=== PATIENT | female | born 2000 | race Caucasian/White ===

== ENCOUNTER 2022-07-27 21:12 | Emergency (ER) | payer OTHER ==
[2022-07-27 21:16] VITALS: BP 121/78; PULSE 77; RESP 16; TEMP 98.2; BMI 32.9
== END 2022-07-27 21:30 | disposition left against medical advice (07) ==
LOC: JERFT 21:12 → JER 21:12
DX: R51.9 Headache, unspecified (principal)
CPT/HCPCS: 99281-25

== ENCOUNTER 2022-08-02 10:00 | Inpatient (IN) | payer OTHER ==
[2022-08-02] MEDS: ELECTROLYTE-148 SOLN 1,000 ML IV SCH (11:15)
[2022-08-02] MEDS ORDERED: DINOPROSTONE 10 MG VAGINAL SUPPOSITORY VG ONE (11:30)
[2022-08-02 12:05] VITALS: BMI 32.9
[2022-08-02] MEDS ORDERED: AMPICILLIN SODIUM 2 GM VIAL ONE (15:00)
[2022-08-02] MEDS ORDERED: AMPICILLIN - 2 GM in SODIUM CHLORIDE 100 ML IVPB ONE (15:00)
[2022-08-02] MEDS ORDERED: AMPICILLIN SODIUM 1 GM VIAL ONE ×2 (19:29→23:25)
[2022-08-02] MEDS: AMPICILLIN - 1 GM in SODIUM CHLORIDE 100 ML IVPB SCH ×2 (19:30→23:30)
[2022-08-03] MEDS ORDERED: OXYTOCIN 30 UNITS in 0.9% NS 30 UNIT/500 ML INFUS.BAG IVPB ONE ×2 (01:30→18:57)
[2022-08-03] MEDS: ELECTROLYTE-148 SOLN 1,000 ML IV SCH ×2 (01:50→15:35)
[2022-08-03] MEDS: OXYTOCIN 30 UNITS in 0.9% NS 30 UNIT/500 ML INFUS.BAG IVPB SCH (01:50)
[2022-08-03] MEDS ORDERED: AMPICILLIN SODIUM 1 GM VIAL ONE ×4 (03:37→14:47)
[2022-08-03] MEDS: AMPICILLIN - 1 GM in SODIUM CHLORIDE 100 ML IVPB SCH ×4 (03:40→15:31)
[2022-08-03] MEDS ORDERED: PROMETHAZINE HCL 25 MG/1 ML VIAL IVPB ONE (04:30)
[2022-08-03] MEDS ORDERED: BUTORPHANOL TARTRATE 1 MG/ML VIAL IVPB ONE (04:30)
[2022-08-03] MEDS ORDERED: PROMETHAZINE HCL 25 MG/1 ML VIAL ONE (04:45)
[2022-08-03] MEDS ORDERED: BUTORPHANOL TARTRATE 2 MG/ML VIAL ONE (04:45)
[2022-08-03] MEDS ORDERED: BUPIVACAINE HCL/PF 0.25% (2.5MG/ML) 10 ML VIAL ONE ×2 (10:50→15:04)
[2022-08-03] MEDS ORDERED: FENTANYL/BUPIVACAINE/NS/PF - PCEA - 50 ML DISP.SYRIN EP ONE ×3 (10:52→18:30)
[2022-08-03] MEDS: FENTANYL/BUPIVACAINE/NS/PF - PCEA - 50 ML DISP.SYRIN EP SCH ×3 (11:07→18:40)
[2022-08-03] MEDS ORDERED: NALOXONE HCL 0.4 MG/ML VIAL IVPUSH PRN (12:21)
[2022-08-03] MEDS ORDERED: FENTANYL CITRATE/PF 50 MCG/ML VIAL ONE (18:47)
[2022-08-03] MEDS ORDERED: ONDANSETRON 4 MG/2 ML VIAL ONE (18:56)
[2022-08-03] MEDS ORDERED: ceFAZolin SODIUM 1 GM VIAL ONE (18:56)
[2022-08-03] MEDS ORDERED: KETOROLAC TROMETHAMINE 30 MG/1 ML VIAL ONE (18:56)
[2022-08-03] MEDS ORDERED: DEXAMETHASONE SOD PHOSPHATE 4 MG/1 ML VIAL ONE (18:56)
[2022-08-03] MEDS ORDERED: CITRIC ACID/SODIUM CITRATE 30 ML UNIT-DOSE CUP PO ONE (18:58)
[2022-08-03] MEDS ORDERED: METHYLERGONOVINE MALEATE 0.2 MG/1 ML AMP IM PRN (18:59)
[2022-08-03] MEDS ORDERED: ACETAMINOPHEN 325 MG TABLET (FP) PO PRN ×2 (18:59→21:01)
[2022-08-03] MEDS ORDERED: morphine SULFATE/PF 1 MG/2 ML (2cc Syringe - QUVA) ONE (19:29)
[2022-08-03] MEDS: OXYTOCIN 20 UNITS in 0.9% NS 20 UNIT/1,000 ML INFUS.BAG IV SCH ×2 (19:45→22:41)
[2022-08-03] MEDS ORDERED: OXYTOCIN 10 UNITS/ML VIAL ONE ×3 (20:25→20:26)
[2022-08-03 20:28] LABS: CORD BASE EXCESS -7.1 mmol/L (0-2); CORD HCO3 21.1 mmHg (20-29); CORD PCO2 52.1 mmHg (30-78); CORD pH 7.225 (7.14-7.44)
[2022-08-03 20:29] LABS: CORD HCO3 22.3 mmHg (20-29); CORD PCO2 63.4 mmHg (30-78); CORD pH 7.165 (7.14-7.44)
[2022-08-03] MEDS ORDERED: IBUPROFEN 600 MG TABLET (FP) PO PRN (21:01)
[2022-08-03] MEDS ORDERED: ONDANSETRON 4 MG/2 ML VIAL IVPUSH PRN (21:01)
[2022-08-04 09:15] LABS: BASO % 0.2 % (0-2.0); EOS % 0.1 % (0-4.5); LYMPH % 8.5 % (8-40); MCHC 33.4 g/dl (32.0-36.0); MEAN CELL VOLUME 86.9 fl (80-96); MEAN PLT VOLUME 8.6 fl (7.5-11.1); MONO % 5.2 % (3.8-10.2); PLATELET COUNT 192 10^3/uL (134-434); RBC 3.45 M/mm3 (3.60-5.2); RDW 12.7 % (11.6-15.6); WHITE BLOOD COUNT 14.8 K/mm3 (4.0-10.0)
[2022-08-04] MEDS: SIMETHICONE 80 MG TAB.CHEW (FP) PO PRN ×3 (09:21→23:25)
[2022-08-04] MEDS: IBUPROFEN 600 MG TABLET (FP) PO PRN ×3 (09:22→23:24)
[2022-08-04] MEDS ORDERED: BISACODYL 10 MG SUPP.RECT RC PRN (18:59)
[2022-08-05] MEDS: oxyCODONE HCL 5 MG TABLET PO PRN ×2 (01:40→10:40)
[2022-08-05] MEDS: IBUPROFEN 600 MG TABLET (FP) PO PRN ×2 (08:37→15:05)
[2022-08-05] MEDS: SIMETHICONE 80 MG TAB.CHEW (FP) PO PRN (15:05)
[2022-08-05] MEDS: OXYTOCIN 30 UNITS in 0.9% NS 30 UNIT/500 ML INFUS.BAG IVPB SCH ×2 (18:58→19:02)
[2022-08-05] MEDS: OXYTOCIN 20 UNITS in 0.9% NS 20 UNIT/1,000 ML INFUS.BAG IV SCH (18:59)
[2022-08-05] MEDS: FENTANYL/BUPIVACAINE/NS/PF - PCEA - 50 ML DISP.SYRIN EP SCH ×2 (18:59→19:03)
[2022-08-05] MEDS: ELECTROLYTE-148 SOLN 1,000 ML IV SCH ×2 (18:59→19:03)
[2022-08-05] MEDS: AMPICILLIN - 1 GM in SODIUM CHLORIDE 100 ML IVPB SCH ×3 (18:59→19:04)
[2022-08-06] MEDS: SIMETHICONE 80 MG TAB.CHEW (FP) PO PRN (01:55)
[2022-08-06] MEDS: IBUPROFEN 600 MG TABLET (FP) PO PRN ×2 (01:55→09:13)
[2022-08-06 09:01] LABS: BASO % 0.5 % (0-2.0); HEMOGLOBIN 10.9 GM/dL (10.7-15.3); LYMPH % 15.3 % (8-40); MCH 29.9 pg (25.7-33.7); MCHC 34.1 g/dl (32.0-36.0); MEAN CELL VOLUME 87.7 fl (80-96); MEAN PLT VOLUME 8.5 fl (7.5-11.1); MONO % 8.6 % (3.8-10.2); NEUT % 73.6 % (42.8-82.8); PLATELET COUNT 203 10^3/uL (134-434); RBC 3.66 M/mm3 (3.60-5.2); RDW 12.8 % (11.6-15.6); WHITE BLOOD COUNT 7.9 K/mm3 (4.0-10.0)
[2022-08-06 09:57] VITALS: BP 119/66; PULSE 84; RESP 16; TEMP 99.1
== END 2022-08-06 13:30 | disposition home or self-care (01) | DRG 540 ==
LOC: JLDR 10:00 → J3W 08-03 22:23
PROVIDERS: ADMIT Internal Medicine; ATTEND Internal Medicine
PROC: 3E0P7VZ Introduction of Hormone into Female Reproductive, Via Natural or Artificial Opening (ICD-10-PCS; 2022-08-02)
PROC: 10D00Z1 Extraction of Products of Conception, Low, Open Approach (ICD-10-PCS; principal; 2022-08-03)
PROC: 3E033VJ Introduction of Other Hormone into Peripheral Vein, Percutaneous Approach (ICD-10-PCS; 2022-08-03)
PROC: 10907ZC Drainage of Amniotic Fluid, Therapeutic from Products of Conception, Via Natural or Artificial Opening (ICD-10-PCS; 2022-08-03)
DX: O48.0 Post-term pregnancy (principal); O36.8330 Maternal care for abnormalities of the fetal heart rate or rhythm, third trimester, not applicable or unspecified; O99.824 Streptococcus B carrier state complicating childbirth; Z3A.41 41 weeks gestation of pregnancy; Z37.0 Single live birth
CPT/HCPCS: 36415; 36600; 59025; 80048; 82803; 85025; 85610; 85730; 86780; 86850; 86900; 86901; 88307-TC; C9803-CS; U0003; U0005